=== PATIENT | male | born 2000 ===

== ENCOUNTER 2023-02-04 23:00 | Inpatient (IN) | payer OTHER, SELFPAY ==
[2023-02-04 23:06] VITALS: BP 97/65; PULSE 69; RESP 16; TEMP 36.2; O2SAT 96
[2023-02-04] MEDS: nicotine 2 mg Gum BUCCAL (23:55)
[2023-02-05 06:00] VITALS: RESP 16
[2023-02-05] MEDS: nicotine 2 mg Gum BUCCAL ×3 (07:36→20:41)
[2023-02-05 14:00] VITALS: BP 132/72; PULSE 73; RESP 16; TEMP 36.6; O2SAT 98
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
[2023-02-05] MEDS: lurasidone 20 mg Tablet PO (16:49)
[2023-02-05 22:00] VITALS: BP 95/52; PULSE 106; RESP 18; TEMP 36.4; O2SAT 98
--- NOTE | 2023-02-05 23:03 | NPU.GN ---
[facility] Unit Group Topic:wood craft models General Mood of Group pleasant, focused. Patient was able to follow written directions and focus to complete the sea turtle wooden model. Patient was appreciative of the activity
[2023-02-06 06:00] VITALS: RESP 15
[2023-02-06] MEDS: nicotine 2 mg Gum BUCCAL ×5 (07:31→20:33)
--- NOTE | 2023-02-06 13:42 | P.NPUPN_ITS ---
Subjective NPU Subjective: The patient is a 22-year-old white male with a history of polysubstance abuse along with psychosis and depression admitted with suicidal ideation along with a history of decompensation in regards to his mood. The patient had isolated himself on the milieu. He reported feeling bored. He stated that he continued to have auditory hallucinations along with complaints of seeing shadows and lights. He had reported that he felt that he may be going down a dark place and reported significant losses in his life including the loss of a job that had led to his hospitalization here. He had reported desire to return and receive psychotherapy again and stated no side effects from his current Latuda. He had reported that his mother was on this medication as a mood stabilizer and for depression. He had reported a past history of poor tolerance to SSRIs and SNRIs as they had made him more irritable. He had endorsed a past history of irritability along with decreased need for sleep and increased agitation lasting for several days in the past but states that it is largely gone untreated for several years. Mental Status Exam MSE Comments: Is a casually dressed white male with fair eye contact and adequate hygiene. There was no evidence of any abnormal involuntary motor movements tics or tremors appreciated. His speech was steady and normal in regards to rate rhythm and prosody. There was some evidence of mild to moderate psychomotor retardation. His mood remained depressed. His affect appeared restricted in range and mood-congruent. His thought process was linear logical and goal- directed. His thought content showed no active homicidal ideation. He also denied suicidal ideation at this time. He did appear to be responding to internal stimuli while having a conversation with himself. He had continued to acknowledge hearing faint voices. He denied any visual hallucinations. His attention span appeared variable. His recent and remote memory were grossly intact. His insight is poor. His judgment is poor. His impulse control appeared limited. Vitals/I&O/Wt Last Vital Signs Temp 97.6 F 02/05/23 22:00 Pulse 106 H 02/05/23 22:00 Resp 15 02/06/23 06:00 BP 95/52 02/05/23 22:00 Pulse Ox 98 02/05/23 22:00 O2 Del Method Room Air 02/05/23 22:00 A&P Assessment and plan (1) Unspecified psychosis: (2) Depression, unspecified: (3) Polysubstance abuse: (4) Alcohol abuse: Plan This is a 22-year-old white male with a past history of polysubstance abuse who has reported recent worsening in mood and increased evidence of psychosis that has been more prominent recently. Patient has not been in treatment for several years and appears to be a good candidate for continued inpatient hospitalization. 1.? ? Engage? patient in individual ,milieu, and group therapy ?2. ? We will attempt to gather collateral information from previous providers ?3. ? TO-15 minute checks on the unit. ?4.? Recommend sober living treatment at the highest level of care to which the patient is willing to commit. 5. ? [facility] protocol, 6. Increase Latuda to 40 mg at night target bipolar depression/psychosis. Involuntary Hold Information 96 Hour Hold: 96 Hour Involuntary Admission: No Attestations NPU Medical Necessity Statement*: Patient hospitalization is medically necessary and deemed to be the clinically appropriate intervention at this time. We will monitor initiate medications while making changes as indicated. His likely length of stay is 5 to 7 days. Coding Level of Care Code Acute Code for [facility] Fwd Diagnoses Unspecified psychosis F29 Depression, unspecified F32.A Polysubstance abuse F19.10 Alcohol abuse F10.10
[2023-02-06 14:00] VITALS: BP 129/79; PULSE 83; RESP 18; TEMP 36.6; O2SAT 95
[2023-02-06] MEDS: lurasidone 20 mg Tablet 40 MG PO (17:34)
[2023-02-06 20:03] VITALS: BP 127/76; PULSE 120; RESP 18; TEMP 36.9; O2SAT 98
[2023-02-07 06:00] VITALS: RESP 16
[2023-02-07] MEDS: nicotine 2 mg Gum BUCCAL ×6 (06:53→20:23)
[2023-02-07 14:00] VITALS: BP 162/76; PULSE 94; RESP 16; TEMP 36.7; O2SAT 97
--- NOTE | 2023-02-07 15:21 | W.PM.NPUPNS ---
Subjective NPU Subjective: The patient is a 22-year-old white male with a history of polysubstance abuse along with psychosis and depression admitted with suicidal ideation along with a history of decompensation in regards to his mood. The patient was reporting no thoughts of hurting himself at this time. He had continued to report having some muffled voices but stated that his mood had been better. He had reported that the effects of long-term psychoactive substance use including hallucinogens had worsened his symptoms dating back to having used in late adolescence. He had reported no suicidal thoughts at this time. He stated that he had been feeling bored but was ready to resume pursuing work and working on improving his mental health which he stated had been neglected for several years. Mental Status Exam MSE Comments: Is a casually dressed white male with fair eye contact and adequate hygiene. There was no evidence of any abnormal involuntary motor movements tics or tremors appreciated. His speech was steady and normal in regards to rate rhythm and prosody. he continued to show evidence of mild psychomotor retardation. His mood was described as better.. His affect remained restricted and mood incongruent. His thought process was linear logical and goal-directed. His thought content showed no active homicidal ideation. He also denied suicidal ideation at this time. He did not appear to be responding to internal stimuli. He had reported that the hallucinations were more muffled. He denied any visual hallucinations. His attention span appeared variable. His recent and remote memory were grossly intact. His insight is poor. His judgment is improving. His impulse control appeared limited. Vitals/I&O/Wt Last Vital Signs Temp 98.0 F 02/07/23 14:00 Pulse 94 02/07/23 14:00 Resp 16 02/07/23 14:00 BP 162/76 02/07/23 14:00 Pulse Ox 97 02/07/23 14:00 O2 Del Method Room Air 02/07/23 14:00 Weight last 48 hrs Weight 82.1 kg A&P Assessment and plan (1) Unspecified psychosis: (2) Depression, unspecified: (3) Polysubstance abuse: (4) Alcohol abuse: Plan This is a 22-year-old white male with a past history of polysubstance abuse who has reported recent worsening in mood and increased evidence of psychosis that has been more prominent recently. Patient has not been in treatment for several years and appears to be a good candidate for continued inpatient hospitalization. 1.? ? Engage? patient in individual ,milieu, and group therapy ?2. ? We will attempt to gather collateral information from previous providers ?3. ? TO-15 minute checks on the unit. ?4.? Recommend sober living treatment at the highest level of care to which the patient is willing to commit. 5. ? [facility] protocol, 6. Continue Latuda to 40 mg at night target bipolar depression/psychosis. Involuntary Hold Information 96 Hour Hold: 96 Hour Involuntary Admission: No Attestations NPU Medical Necessity Statement*: Patient hospitalization is medically necessary and deemed to be the clinically appropriate intervention at this time. We will monitor initiate medications while making changes as indicated. His likely length of stay is 2-3 days. Coding Level of Care Code Acute Code for [facility] Fwd Diagnoses Unspecified psychosis F29 Depression, unspecified F32.A Polysubstance abuse F19.10 Alcohol abuse F10.10
[2023-02-07] MEDS: lurasidone 20 mg Tablet 40 MG PO (17:07)
[2023-02-07 20:33] VITALS: BP 117/75; PULSE 90; RESP 20; TEMP 36.7; O2SAT 98
[2023-02-08] MEDS: nicotine 2 mg Gum BUCCAL ×4 (05:28→14:34)
[2023-02-08 06:00] VITALS: BP 137/78; PULSE 83; RESP 18; TEMP 36.7; O2SAT 96
[2023-02-08 13:57] VITALS: BP 106/75; PULSE 135; RESP 20; TEMP 36.7; O2SAT 97
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
[2023-02-08 14:28] VITALS: BP 106/75; PULSE 135; RESP 20; TEMP 36.7; O2SAT 97
--- NOTE | 2023-02-08 16:58 | PC.NURSE ---
written discharge instruction discussed and left with patient. pt states understanding and compliance. meds to beds delivered and given to patient. pt to leave with his mother.
== END 2023-02-08 17:01 | disposition home or self-care (01) | DRG 885 ==
PROVIDERS: Admitting Provider Psychiatry & Neurology Psychiatry; PCP Family Medicine; Visit Provider Psychiatry & Neurology Psychiatry
DX: F29 Unspecified psychosis not due to a substance or known physiological condition (principal); R45.851 Suicidal ideations; F32.A Depression, unspecified; F10.10 Alcohol abuse, uncomplicated; F14.10 Cocaine abuse, uncomplicated; F16.10 Hallucinogen abuse, uncomplicated; F12.10 Cannabis abuse, uncomplicated; F11.10 Opioid abuse, uncomplicated; Z81.8 Family history of other mental and behavioral disorders; Z91.51 Personal history of suicidal behavior; Z62.810 Personal history of physical and sexual abuse in childhood
CPT/HCPCS: 97150; 97165; 99238